=== PATIENT | female | born 1940 | race Two or more races ===

== ENCOUNTER 2024-06-10 18:55 | Emergency (ER) | payer OTHER ==
[~2024-06-10] VITALS: Ht 160 cm; Wt 45.4 kg
[2024-06-10] MEDS ORDERED: LEVOTHYROXINE25 MCG PO (19:01)
[2024-06-10 19:54] LABS: HEMATOCRIT 35.8 % (36.0-45.00); HEMOGLOBIN 12.1 g/dL (12.0-15.00); MEAN CELL VOLUME 91.3 fL (80.00-100.00); MEAN CORPUSCULAR HEMOGLOBIN 30.9 pg (27.00-32.0); MEAN CORPUSCULAR HGB CONC 33.8 g/dl (32.0-36.0); PLATELET COUNT 224 K/uL (150-450); RED BLOOD COUNT 3.93 M/uL (4.00-6.00); RED CELL DISTRIBUTION WIDTH 14.3 % (11.5-14.5)
[2024-06-10 20:09] LABS: CALCIUM 10.1 mg/dL (8.5-10.1); CREATININE SERUM 0.77 mg/dL (0.55-1.02); GFR 71.24; POTASSIUM 4.21 mEq/L (3.5-5.1)
== END 2024-06-10 21:53 | disposition home or self-care (01) ==
LOC: ER 18:57
PROVIDERS: Emergency Medicine
DX: M94.0 Chondrocostal junction syndrome [Tietze] (principal); Z88.0 Allergy status to penicillin

== ENCOUNTER 2024-09-22 15:41 | Outpatient (CLI) | payer OTHER ==
[~2024-09-22 15:41] MED LIST: LEVOTHYROXINE25 MCG PO
== END 2024-09-22 15:46 | disposition home or self-care (01) ==
LOC: RAD 15:41
DX: M54.2 Cervicalgia (principal); M54.6 Pain in thoracic spine; M54.50 Low back pain, unspecified